=== PATIENT | male | born 1940 | race Caucasian/White ===

== ENCOUNTER 2022-03-24 09:40 | Emergency (ER) | payer OTHER ==
[~2022-03-24] VITALS: Ht 167.6 cm; Wt 59.9 kg
--- NOTE | 2022-03-24 09:50 | NUR ---
DR VICTORIA AT [facility] FOR EVAL.
--- NOTE | 2022-03-24 09:51 | NUR ---
PT BIBA AMBULANCE FROM HOME FOR C/O ANTERIOR CHEST WALL PAIN SINCE AM, NON RADIATING, NONPROVOKED. PT DENIES ANY SOB. PT HYPERTENSIVE AND ON MULTIPLE BP MEDS BUT NON COMPLAINT. PT WITH CARDIAC HISTORY INCLUDING AN AORTIC DISECTION IN 2005. DENIES ANY N/V/D. DENIES HEADACHE OR ANY CHNAGES IN VISION. SKIN W/D/I
[2022-03-24] MEDS ORDERED: NITROGLYCERIN 0.4 MG TAB.SUBL SL ONE (10:00)
[2022-03-24 10:01] VITALS: BP_SYST 212
[2022-03-24 10:18] LABS: BASOPHILS # (AUTO) 0.1 K/uL (0.0-0.2); BASOPHILS % (AUTO) 1.1 % (0.0-2.0); EOSINOPHILS # (AUTO) 0.3 K/uL (0.0-0.4); EOSINOPHILS % (AUTO) 3.4 % (0.0-4.0); HEMATOCRIT 39.8 % (36-54); HEMOGLOBIN 13.4 g/dL (14.0-18.0); LYMPHOCYTES # (AUTO) 1.9 K/uL (1.0-5.5); LYMPHOCYTES % (AUTO) 22.5 % (20.5-51.5); MEAN CORPUSCULAR HEMOGLOBIN 31 pg (27-31); MEAN CORPUSCULAR HGB CONC 34 % (32-36); MEAN CORPUSCULAR VOLUME 90 fL (79.0-98.0); MONOCYTES # (AUTO) 0.7 K/uL (0.0-1.0); MONOCYTES % (AUTO) 8.6 % (1.7-9.3); NEUTROPHILS # (AUTO) 5.5 K/uL (1.8-7.7); NEUTROPHILS % (AUTO) 64.4 % (40.0-70.0); PLATELET COUNT (AUTO) 319 K/uL (130-430); RED CELL DISTRIBUTION WIDTH 15.1 % (9.0-15.0); WHITE BLOOD COUNT (AUTO) 8.6 K/uL (4.8-10.8)
--- NOTE | 2022-03-24 10:34 | NUR ---
PT WITH EYES CLOSED, IN NAD. RESP EVEN AND UNLABORED, DENIES ANY CP OR SOB.
[2022-03-24 10:49] LABS: ANION GAP 8 (5-15); CALCIUM 8.3 mg/dL (8.4-11.0); CHLORIDE 106 mmol/L (98-107); CREATININE 0.91 mg/dL (0.55-1.30); GLUCOSE 102 mg/dL (70-99); POTASSIUM 3.9 mmol/L (3.5-5.1); SODIUM SERUM 139 mmol/L (136-145); UREA NITROGEN, BLOOD 6 mg/dL (8-21)
[2022-03-24 10:58] LABS: ALANINE AMINOTRANSFERASE 7 U/L (12-78); ALBUMIN 3.1 g/dL (3.4-4.8); ASPARTATE AMINOTRANSFERASE 14 U/L (10-37); TOTAL BILIRUBIN 0.6 mg/dL (0.0-1.0)
[2022-03-24] MEDS ORDERED: cloNIDine HCL 0.1 MG TABLET PO ONE (13:00)
--- NOTE | 2022-03-24 13:10 | NUR ---
PT CONT TO BE HYPERTENSIVE, EYES CLOSED IN BED , RESTING, BP 217/77 , DR JULIEN KERNS. KEVENR RECEIVED, MEDICATED ORDERED.
--- NOTE | 2022-03-24 13:30 | NUR ---
PT CONTINUESTO BE HYPERTENSIVE DESPITA CLONIDINE 0.1MG GIVEN. PT HYPERTENSIVE AT 209/72, OKAY TO DC PER DR VICTORIA.
--- NOTE | 2022-03-24 13:33 | NUR ---
Patient given written and verbal discharge instructions and verbalizes understanding. ER MD discussed with patient the results and treatment provided. Patient in stable condition. ID arm band removed. Patient educated on pain management and to follow up with PMD. Pain Scale . Opportunity for questions provided and answered. Medication side effect fact sheet provided.
[2022-03-24 15:21] VITALS: BP_SYST 209
== END 2022-03-24 13:33 | disposition home or self-care (01) ==
LOC: SED 09:40
DX: R07.89 Other chest pain (principal); I10 Essential (primary) hypertension; Z79.899 Other long term (current) drug therapy
CPT/HCPCS: 36415; 71045; 80053; 83880; 84484; 85025; 93005; 99285